=== PATIENT | female | born 1965 | race American Indian/Alaskan Native ===

== ENCOUNTER 2017-12-21 08:18 | Emergency (ER) | payer OTHER ==
--- NOTE | 2017-12-21 10:02 | ED PDOC ---
Arrival/HPI - General Chief Complaint: Abdominal Pain Time Seen by Provider: 12/21/17 09:19 Historian: Patient - History of Present Illness Narrative History of Present Illness (Text): 12/21/17 09:57 52 year old female presents to the Emergency department complaining of abdominal pain for several weeks. Patient also complains of associated diarrhea , nausea, and blood in the stool. Patient denies any fever, chills, chest pain, shortness of breath, vomiting, urinary symptoms, back pain, neck pain, headache , dizziness, or any other complaints. Time/Duration: > week, > month Symptom Onset: Gradual Symptom Course: Unchanged Context: Home Past Medical History - Provider Review Nursing Documentation Reviewed: Yes - Infectious Disease Hx of Infectious Diseases: None - Cardiac Hx Hypertension: Yes - Psychiatric Hx Substance Use: No Family/Social History - Physician Review Nursing Documentation Reviewed: Yes Family/Social History: Unknown Family HX Smoking Status: Never Smoked Hx Alcohol Use: No Hx Substance Use: No Allergies/Home Meds Allergies/Adverse Reactions: Allergies No Known Allergies Allergy (Verified 12/21/17 08:59) Home Medications: Home Meds Medication Instructions Recorded Confirmed Valsartan [Diovan] 300 mg PO DAILY 12/21/17 12/21/17 Review of Systems - Review of Systems Constitutional: Normal Eyes: Normal ENT: Normal Respiratory: Normal Cardiovascular: Normal Gastrointestinal: Abdominal Pain, Stool Changes (blood in the stool), Diarrhea, Nausea. absent: Vomiting Genitourinary Female: Normal Musculoskeletal: Normal Skin: Normal Neurological: Normal Endocrine: Normal Hemo/Lymphatic: Normal Psychiatric: Normal Physical Exam Vital Signs Reviewed: Yes Vital Signs Temp Pulse Resp BP Pulse Ox 12/21/17 11:20 108 H 18 135/86 98 12/21/17 08:56 98.9 F 98 H 18 139/90 96 Temperature: Afebrile Blood Pressure: Normal Pulse: Tachycardic Respiratory Rate: Normal Appearance: Positive for: Well-Appearing, Non-Toxic, Comfortable Pain Distress: None Mental Status: Positive for: Alert and Oriented X 3 - Systems Exam Head: Present: Atraumatic, Normocephalic Pupils: Present: PERRL Extroacular Muscles: Present: EOMI Conjunctiva: Present: Normal Mouth: Present: Moist Mucous Membranes Neck: Present: Normal Range of Motion Respiratory/Chest: Present: Clear to Auscultation, Good Air Exchange. No: Respiratory Distress, Accessory Muscle Use Cardiovascular: Present: Regular Rate and Rhythm, Normal S1, S2. No: Murmurs Abdomen: No: Tenderness, Distention, Normal Bowel Sounds, Peritoneal Signs, Rebound, Guarding, McBurney's Point Tender, Rovsing's Sign Present, Hernias, Feeding Tubes, Ostomy Tubes, Mass/Organomegaly, Scars, Other Rectal: Present: Occult Blood. No: Rectal Tenderness, Gross Blood, Melena, Hemorrhoids, Normal Rectal Tone (gauic positive), Fissures, Nodule/Mass/Lesions , Other Back: Present: Normal Inspection Upper Extremity: Present: Normal Inspection. No: Cyanosis, Edema Lower Extremity: Present: Normal Inspection. No: Edema Neurological: Present: GCS=15, CN II-XII Intact, Speech Normal Skin: Present: Warm, Dry, Normal Color. No: Rashes Psychiatric: Present: Alert, Oriented x 3, Normal Insight, Normal Concentration Medical Decision Making ED Course and Treatment: 12/21/17 10:04 You were treated in the ED today for abdominal pain with some loose stool with blood in it and decreased appetite but otherwise without any new foods/travel/ sick contacts/vomiting/headache/dizziness/difficulty breathing/chest pain/ numbness/tingling/loss of limb function/pain with urination. You were otherwise breathing easily, smiling and talking with your , good strength/sensation , walking easily, clear lungs, no abdomen tenderness, rectal exam with nurse aid Liset present: no gross blood but positive guaic test, no fever temp 98.9, elevated heart rate 98, stable breathing rate 18, excellent oxygen level 96% room air, normal blood pressure 139/90, you have blood tests no infection count 7, stable blood level hemoglobin 12platelets 412, stable chemistry, bicarbonate mildly low 19 intravenous fluids given, anion gap mildly elevated corrected 18 with intraveous fluids given, glucose mildly low 63 and repeat 65 and given juice/food and repeat , heart blood test negative less than 0.01, lipase negative 11, urine test no acute sign of infection, urine test you stated you don't get your menstrual periods anymore, ECG normal sinus rhythm, saline, zofran, protonix, observation done in the ED with improvement, counselled to monitor symptoms and thus discharged home with . 1. Recommend pepcid as directed for antiacid. recommend zofran as directed for antinausea. 2. Recommend follow-up primary care 2-3 days to review symptoms, referral to gastroenterology to review your symptoms to ensure no complications and further care, referral to urology for protein/blood/course granular findings in urine to ensure no complications and further care, referral to endocrine clinic for blood sugar evaluation to ensure further care. 4. If any worsening pain, fever, chills, nausea, vomiting, difficulty breathing, numbness , loss of limb function, pain with urination or any medical condition then return to the Emergency department. 12/21/17 12:48 12/21/17 12:50 Reassessment Condition: Re-examined, Improved - Lab Interpretations Lab Results: 12/21/17 11:00 12/21/17 11:00 Lab Results 12/21/17 11:00: Blood Type B POSITIVE, Antibody Screen Negative, BBK History Checked No verified bt 12/21/17 11:00: Sodium 141, Potassium 4.1, Chloride 104, Carbon Dioxide 19 L, Anion Gap 22 H, BUN 12, Creatinine 0.7, Est GFR ( Amer) > 60, Est GFR ( Non-Af Amer) > 60, Random Glucose 63 L, Calcium 9.1, Magnesium 1.8, Total Bilirubin 1.0, AST 19, ALT 28, Alkaline Phosphatase 87, Lactate Dehydrogenase 462, Total Creatine Kinase 96, Troponin I < 0.01, Total Protein 7.4, Albumin 4.1 , Globulin 3.4, Albumin/Globulin Ratio 1.2, Lipase 11 L 12/21/17 11:00: Urine Color Yellow, Urine Appearance Clear, Urine pH 6.0, Ur Specific [place] >= 1.030, Urine Protein 30 H, Urine Glucose (UA) Negative, Urine Ketones >=80, Urine Blood Moderate H, Urine Nitrate Negative, Urine Bilirubin Negative, Urine Urobilinogen 0.2, Ur Leukocyte Esterase Negative, Urine RBC 15 - 20, Urine WBC 1 - 3, Ur Epithelial Cells 6 - 8, Urine Bacteria Many, Fine Granular Casts 0 - 2, Coarse Granular Casts Trace H 12/21/17 11:00: PT 13.4 H, INR 1.16 H, APTT 28.8 12/21/17 11:00: WBC 7.7, RBC 4.16, Hgb 12.3, Hct 37.0, MCV 88.9, MCH 29.6, MCHC 33.2, RDW 13.5, Plt Count 412, MPV 9.3, Gran % 71.6 H, Lymph % (Auto) 14.0 L, [place] % (Auto) 9.4 H, Eos % (Auto) 4.6, Baso % (Auto) 0.4, Gran # 5.51, Lymph # ( Auto) 1.1 L, [place] # (Auto) 0.7 H, Eos # (Auto) 0.4, Baso # (Auto) 0.03 I have reviewed the lab results: Yes - EKG Interpretation Interpreted by ED Physician: Yes (NSR) Type: 12 lead EKG - Medication Orders Current Medication Orders: Discontinued Medications Sodium Chloride (Sodium Chloride 0.9%) 1,000 mls @ 999 mls/hr IV .Q1H1M STA Stop: 12/21/17 11:27 Last Admin: 12/21/17 10:42 Dose: 999 mls/hr eMAR Start Stop Document 12/21/17 10:42 PRASHANT (Rec: 12/21/17 10:42 PRASHANT [id number]) Intravenous Solution Start Date 12/21/17 Start Time 10:42 End Date 12/21/17 End time 11:42 Total Infusion Time 60 Ondansetron HCl (Zofran Inj) 4 mg IVP STAT STA Stop: 12/21/17 10:28 Last Admin: 12/21/17 10:42 Dose: 4 mg IVP Administration Document 12/21/17 10:42 PRASHANT (Rec: 12/21/17 10:42 PRASHANT [id number]) Charges for Administration # of IVP Administrations 1 Pantoprazole Sodium (Protonix Inj) 80 mg IVP STAT STA Stop: 12/21/17 10:28 Last Admin: 12/21/17 10:42 Dose: 80 mg IVP Administration Document 12/21/17 10:42 PRASHANT (Rec: 12/21/17 10:43 PRASHANT [id number]) Charges for Administration # of IVP Administrations 1 - Scribe Statement The provider has reviewed the documentation as recorded by the Alejandro Zhang Provider Scribe Attestation: All medical record entries made by the Scribe were at my direction and personally dictated by me. I have reviewed the chart and agree that the record accurately reflects my personal performance of the history, physical exam, medical decision making, and the department course for this patient. I have also personally directed, reviewed, and agree with the discharge instructions and disposition. Disposition/Present on Arrival - Present on Arrival Any Indicators Present on Arrival: No History of DVT/PE: No History of Uncontrolled Diabetes: No Urinary Catheter: No History of Decub. Ulcer: No History Surgical Site Infection Following: None - Disposition Have Diagnosis and Disposition been Completed?: Yes Diagnosis: Gastroenteritis Disposition: HOME/ ROUTINE Disposition Time: 12:54 Condition: IMPROVED Additional Instructions: You were treated in the ED today for abdominal pain with some loose stool with blood in it and decreased appetite but otherwise without any new foods/travel/ sick contacts/vomiting/headache/dizziness/difficulty breathing/chest pain/ numbness/tingling/loss of limb function/pain with urination. You were otherwise breathing easily, smiling and talking with your , good strength/sensation , walking easily, clear lungs, no abdomen tenderness, rectal exam with nurse aid Liset present: no gross blood but positive guaic test, no fever temp 98.9, elevated heart rate 98, stable breathing rate 18, excellent oxygen level 96% room air, normal blood pressure 139/90, you have blood tests no infection count 7, stable blood level hemoglobin 12platelets 412, stable chemistry, bicarbonate mildly low 19 intravenous fluids given, anion gap mildly elevated corrected 18 with intraveous fluids given, glucose mildly low 63 and repeat 65 and given juice/food and repeat , heart blood test negative less than 0.01, lipase negative 11, urine test no acute sign of infection, urine test you stated you don't get your menstrual periods anymore, ECG normal sinus rhythm, saline, zofran, protonix, observation done in the ED with improvement, counselled to monitor symptoms and thus discharged home with . 1. Recommend pepcid as directed for antiacid. recommend zofran as directed for anti -nausea. 2. Recommend follow-up primary care 2-3 days to review symptoms, referral to gastroenterology to review your symptoms to ensure no complications and further care, referral to urology for protein/blood/course granular findings in urine to ensure no complications and further care, referral to endocrine clinic for blood sugar evaluation to ensure further care. 4. If any worsening pain, fever, chills, nausea, vomiting, difficulty breathing, numbness , loss of limb function, pain with urination or any medical condition then return to the Emergency department. Prescriptions: Famotidine [Pepcid] 20 mg PO DAILY 30 Days #30 tab Ondansetron ODT [Zofran ODT] 4 mg PO Q8 PRN 5 Days #20 odt PRN Reason: Nausea/Vomiting Referrals: Destini Alvarenga MD [Primary Care Provider] - Follow up with primary Forms: [employer] (Lithuanian)
[2017-12-21] MEDS ORDERED: Sodium Chloride 0.9% 1,000 ML IV STA (10:27)
[2017-12-21 11:29] LABS: ALB/GLOB RATIO 1.2 (1.1-1.8); ALBUMIN 4.1 g/dL (3.0-4.8); ALT/SGPT 28 U/L (7-56); AST/SGOT 19 U/L (14-36); BASO # 0.03 K/mm3 (0.0-2.0); BASO % 0.4 % (0.0-3.0); BLOOD UREA NITROGEN 12 mg/dL (7-21); CALCIUM 9.1 mg/dL (8.4-10.5); EOS # 0.4 (0.0-0.7); EOS % 4.6 % (1.5-5.0); GFR AFRICAN-AMERICAN > 60; GFR NON-AFRICAN AMERICAN > 60; GRAN # 5.51 (1.4-6.5); GRAN % 71.6 % (50.0-68.0); HEMOGLOBIN 12.3 g/dL (12.0-16.0); LIPASE 11 U/L (23-300); LYMPH # 1.1 (1.2-3.4); MEAN CELL VOLUME 88.9 fl (80.0-105.0); MEAN CORPUSCULAR HEMOGLOBIN 29.6 pg (25.0-35.0); MEAN CORPUSCULAR HGB CONC 33.2 g/dl (31.0-37.0); MEAN PLATELET VOLUME 9.3 fl (7.0-11.0); MONO # 0.7 (0.1-0.6); MONO % 9.4 % (1.0-6.0); RBC 4.16 10^6/uL (3.5-6.1); RED CELL DISTRIBUTION WIDTH 13.5 % (11.5-14.5); WHITE BLOOD COUNT 7.7 10^3/ul (4.5-11.0)
[2017-12-21 11:32] LABS: URINE BILIRUBIN NEGATIVE (NEGATIVE); URINE BLOOD MODERATE (NEGATIVE); URINE GLUCOSE (UA) NEGATIVE (NEGATIVE); URINE LEUKOCYTE ESTERASE NEGATIVE Leu/uL (NEGATIVE); URINE PROTEIN 30 mg/dL (<30 mg/dL); URINE UROBILINOGEN 0.2 E.U./dL (<1 E.U./dL)
[2017-12-21 11:33] LABS: URINE APPEARANCE CLEAR (CLEAR); URINE COLOR YELLOW (YELLOW)
[2017-12-21 11:37] LABS: URINE BACTERIA MANY (NEG); URINE RBC 15 - 20 /hpf (0-2)
[2017-12-21 11:38] LABS: URINE COARSE GRANULAR CAST TRACE /hpf (0-2); URINE FINE GRANULAR CAST 0 - 2 /hpf (0-2)
[2017-12-21 11:40] LABS: TROPONIN I < 0.01 ng/mL
[2017-12-21 11:46] LABS: INR 1.16 (0.93-1.08); PARTIAL THROMBOPLASTIN TIME 28.8 Seconds (25.1-36.5); PROTHROMBIN TIME 13.4 SECONDS (9.4-12.5)
[2017-12-21 13:21] VITALS: BP 130/75; PULSE 78; RESP 16; TEMP 98.1; O2SAT 99
--- NOTE | 2017-12-21 22:13 | CARD ---
APPROVED REPORT EKG Measurement Heart [id number] <Conclusion> Normal sinus rhythm Biatrial enlargement Cannot rule out Anterior infarct, age undetermined Abnormal ECG
== END 2017-12-21 13:19 | disposition home or self-care (01) ==
LOC: ED 08:18 → MERGE 08:18 → ED 13:19
DX: K52.9 Noninfective gastroenteritis and colitis, unspecified (principal); I10 Essential (primary) hypertension
CPT/HCPCS: 80053; 81001; 82550; 82948; 83615; 83690; 83735; 84484; 85025; 85610; 85730; 86850; 86900; 87086; 93005; 96361; 96374; 96375; 99283; C9113; J2405; J7030